=== PATIENT | female | born 1985 | race Caucasian/White ===

== ENCOUNTER 2021-11-23 11:13 | Emergency (ER) | payer OTHER ==
[~2021-11-23 11:13] MED LIST: METFORMIN HCL500 MG PO
[2021-11-23 13:21] LABS: BILIRUBIN NEGATIVE (NEGATIVE); BLOOD NEGATIVE Ery/uL (NEGATIVE); CLARITY CLEAR (CLEAR); COLOR YELLOW (YELLOW); GLUCOSE (U) NORMAL (NORMAL); LEUKOCYTES NEGATIVE Leu/uL (NEGATIVE); NITRITE NEGATIVE (NEGATIVE); PROTEIN NEGATIVE (NEGATIVE); SPECIFIC GRAVITY 1.025 (1.001-1.030); UROBILINOGEN 0.2 mg/dL (0.2-1.0)
[2021-11-23 13:29] LABS: EOSINOPHIL 4.4 % (0-5); HCT 37.5 % (37.0-47.0); HGB 12.6 g/dl (12.5-16.0); LYMPHOCYTE 21.9 % (15-48); MCH 34.1 pg (25.0-31.0); MCHC 33.6 g/dL (32.0-36.0); MCV 101.6 fL (78.0-100.0); MONOCYTE 10.2 % (0-12); MPV 10.4 fL (6.0-9.5); NEUTROPHIL 62.2 % (41-80); NRBC 0; PLT 235 K/uL (150-400); RBC 3.69 M/uL (4.20-5.40); RDW 12.5 % (11.5-14.0); WBC 6.9 K/uL (4.0-10.5)
[2021-11-23 13:55] LABS: ALBUMIN 3.6 g/dL (3.4-5.0); BILIRUBIN - TOTAL 0.3 mg/dL (0.2-1.0); CREATININE 0.61 mg/dL (0.51-0.95); GLOBULIN (CALCULATION) 3.1 g/dL; TOTAL PROTEIN 6.7 g/dL (6.4-8.2)
[2021-11-23] MEDS ORDERED: BENTYL10 MG PO (15:46)
== END 2021-11-23 15:55 | disposition home or self-care (01) ==
LOC: FER 11:13
PROVIDERS: Nurse Practitioner Family
DX: R10.30 Lower abdominal pain, unspecified (principal); E10.9 Type 1 diabetes mellitus without complications; Z88.5 Allergy status to narcotic agent; Z79.84 Long term (current) use of oral hypoglycemic drugs
CPT/HCPCS: 36415; 80053; 81003; 83690; 85025; J1885; J2405; J7030; Q9967